=== PATIENT | male | born 1940 | race African-American/Black ===

== ENCOUNTER 2019-02-04 17:32 | Inpatient (IN) | payer MEDICARE, OTHER ==
[~2019-02-04] VITALS: Ht 180.3 cm; Wt 114.3 kg
--- NOTE | ~2019-02-04 | CON ---
[address] [address] CONSULTATION Name: GERBER MOSER Room: [address] ADM IN M.R.#: [id number] Admission: 02/04/19 Attend Phys: Jocelyn Rosas Discharge: Date of : 40 Report #: [id number] THIS REPORT FOR: //name// CC: DIA physician/PCP Mitchell Sweeney DATE OF SERVICE: 02/07/2019 ATTENDING PHYSICIAN: Dr. Gardner. REASON FOR EVALUATION: Nosocomial fevers. HISTORY OF PRESENT ILLNESS: Chart reviewed, patient examined. This is a 78-year-old gentleman with diabetes mellitus type 2, complicated by diabetic retinopathy and blindness, also suspected adouf-sn-mfjpvrg renal failure, presented to the Emergency Room with complaints of progressive weakness. It is notable he had a screening colonoscopy roughly 3 days prior to his admission, developed tremulousness and diaphoresis. notes he does twitching of his eyes generally in closed state as well as his lips sometimes, this is not new. Apparently, he has not had any nausea or emesis. Certainly, he has not had fevers preadmission, although his spouse does not believe that to be the case. He does live in [place]. Blood cultures have been collected on 2 different occasions on 02/04 and 02/05, both of which have been sterile; empirically started on antimicrobials with ceftriaxone and more recently levofloxacin. Imaging thus far involves chest x-ray on 3 occasions, showed no acute process. ALLERGIES: None known. CURRENT MEDICINES: Include levofloxacin, guaifenesin, insulin, isosorbide mononitrate, metoprolol, aspirin, ascorbic acid, levothyroxine, linagliptin, gabapentin, montelukast, atorvastatin, had received 48-72 hours of ceftriaxone as well. 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 SOCIAL HISTORY: Nonsmoker. No ethanol, no illicit drug use. FAMILY HISTORY: Noncontributory. REVIEW OF SYSTEMS: Otherwise, unremarkable 10-point review of systems except noted in the above history of present illness. PHYSICAL EXAMINATION: GENERAL: He is calm, alert; has his eyes closed, I guess, due to blindness; [place] [address] CONSULTATION Name: GERBER MOSER Room: [address] IN [facility].#: [id number] Admission: 02/04/19 Attend Phys: Jocelyn Rosas Discharge: Date of : 40 Report #: [id number] does respond appropriately; mild distress; appears to be generally well nourished. VITAL SIGNS: Temperature 101.3. Interestingly has a pulse of 73, although he is on a beta oralia, perhaps a question of temperature-pulse dissociation due to drug fever. HEENT: Normocephalic. NECK: Supple. LUNGS: Generally clear to auscultation. HEART: Regular, occasional ectopy, I do not appreciate a murmur. ABDOMEN: Soft, actually distended. There is no apparent tenderness. EXTREMITIES: Distal lower extremities have changes consistent with venous stasis, mild edema. GENITOURINARY: Deferred. RECTAL: Deferred. LABORATORY DATA: Most recent chest x-ray from 02/06 showed no acute process. Blood cultures on 02/04 and 02/05 are sterile thus far. Electrolytes most recently, sodium 140, potassium 3.9, chloride 103, bicarbonate is 27, anion gap of 10, BUN and creatinine 32 and 1.9, is down from 2.4. Estimated GFR of 42. Lactic acid initially 2.1, repeat was down to 1.6 and 1.5. CBC: White count of 5.6, H and H 10.3 and 30.7, platelets of 167. Liver functions were unremarkable. ASSESSMENT: Nosocomial fevers. Based on history and his responses, it is not entirely clear whether he has had fevers prior to his admission. Duration seems to revolve around his colonoscopy. Did switch off the beta-lactam antibiotic; we will see how he responds to that if indeed it was a drug fever. It is reasonable to check some imaging of the abdomen and pelvis, urinalysis to see if we can identify focus of pyogenic infection. At this point, he is not overtly toxic. We will monitor expectantly. By: [id number] Borja MD /nt
[2019-02-04 17:40] VITALS: BP 160/73
[2019-02-04] MEDS ORDERED: ASPIR 8181 MG PER TUBE (17:58)
[2019-02-04] MEDS ORDERED: NORVASC10 MG PO (17:58)
[2019-02-04] MEDS ORDERED: GABAPENTIN 100100 MG PO (17:59)
[2019-02-04] MEDS ORDERED: LANTUS100 UNIT/M SUBQ (17:59)
[2019-02-04] MEDS ORDERED: IMDUR 60 MG TAB60 M1 PO (17:59)
[2019-02-04] MEDS ORDERED: CENTRUM FLAVOR1 EAC1 PO (18:00)
[2019-02-04] MEDS ORDERED: SYNTHROID75 MCG PO (18:00)
[2019-02-04] MEDS ORDERED: NITROGLYCERIN0.4 MG SUBLING (18:00)
[2019-02-04] MEDS ORDERED: DIOVAN320 MG PO (18:01)
[2019-02-04] MEDS ORDERED: SINGULAIR4 MG PO (18:01)
[2019-02-04] MEDS ORDERED: LIPITOR40 MG PO (18:02)
[2019-02-04] MEDS ORDERED: TRADJENTA5 MG (18:02)
[2019-02-04] MEDS ORDERED: LOPRESSOR50 PO (18:02)
[2019-02-04] MEDS ORDERED: VITAMINC500 PO (18:02)
[2019-02-04] MEDS ORDERED: FISH OIL 1,001000 M2 PO (18:02)
[2019-02-04 18:07] LABS: ABSOLUTE EOSINOPHILS 0.1 thou/uL (0.0-0.7); ABSOLUTE MONOCYTES 1.2 thou/uL (0.0-1.2); BASOPHILS 0.6 %; EOSINOPHILS 1.1 %; HEMATOCRIT 32.1 % (42.0-52.0); HEMOGLOBIN 10.9 gm/dL (14.0-18.0); MCH 30.4 pg (26.0-34.0); MCHC 33.8 g/dL (28.0-37.0); MCV 89.9 fL (80.0-100.0); MONOCYTES 16.8 %; MPV 9.7 fl. (7.2-11.1); NUCLEATED RBCS 0 /100WBC; PLATELET COUNT* 183 thou/uL (150-400); POLYS 67.5 %; RBC 3.57 mil/uL (4.50-6.00); WBC 7.4 thou/uL (4.0-11.0)
[2019-02-04 18:25] LABS: APTT 35.1 Seconds (25.0-31.3); CALCIUM 8.7 mg/dL (8.5-10.1); CREATININE 2.4 mg/dL (0.6-1.3); POTASSIUM 4.1 mmol/L (3.5-5.1); PROTIME 10.7 Seconds (9.20-11.50)
[2019-02-04 18:36] LABS: ALBUMIN 3.2 g/dL (3.4-5.0); TOTAL BILIRUBIN 0.5 mg/dL (<0.1-1.0); TOTAL PROTEIN 7.6 g/dL (6.4-8.2); TROPONIN-I LEVEL 0.26 ng/mL (<0.06)
[2019-02-04 20:53] LABS: URINE BILIRUBIN NEGATIVE (Negative); URINE BLOOD NEGATIVE (Negative); URINE CLARITY CLEAR; URINE COLOR YELLOW; URINE GLUCOSE-RANDOM NEGATIVE (Negative); URINE KETONES NEGATIVE (Negative); URINE LEUKOCYTES-REFLEX NEGATIVE (Negative); URINE NITRITE-REFLEX NEGATIVE (Negative); URINE PROTEIN NEGATIVE (Negative); URINE SPECIFIC GRAVITY >= 1.030 (1.005-1.030); URINE UROBILINOGEN 0.2 E.U./dl (0.2-1.0)
[2019-02-04 21:09] VITALS: BP 135/64
[2019-02-05] VITALS: BP 146/54
--- NOTE | 2019-02-05 02:58 | NUR ---
RECIEVED REPORT AND ASSUMED CARE AT 2109. PT TRANSPORTED FROM ED TO ROOM 219. VSS. CARDIAC MONITORING IN PLACE. ASSESSMENT COMPLETED CHARTED. PT DENIES COMPLAINTS OF PAIN. ADMISSION COMPLETED BY NURSING. HOME MEDICATION REC COMPLETED. PT UP WITH ASSIST, ON RA. BED LOCKED IN LOWEST POSITION, CALL LIGHT WIHTIN REACH, BED ALARM ON. PT ORIENTATED TO ROOM, CALL LIGHT, FALL POLICY. PT IS BLIND BILATERAL EYES. COTTON BALLS ON NURSES CALL BUTTONS FOR PT TO BE ABLE TO ACCESS BY FEEL.
[2019-02-05 04:00] VITALS: BP 145/61
[2019-02-05 05:38] LABS: CALCIUM 8.3 mg/dL (8.5-10.1); POTASSIUM 3.6 mmol/L (3.5-5.1)
--- NOTE | 2019-02-05 07:09 | NUR ---
ASSUMED CARE APPROX 2330. AGREE WITH PREVIOUS NURSE CHARTING. VVS. SEE MAR. SEE CHARTING. FALL PRECAUTIONS IN PLACE. HOURLY ROUNING FOR SAFETY.
[2019-02-05 08:00] VITALS: BP 130/57
[2019-02-05 10:52] LABS: HEMATOCRIT 30.7 % (42.0-52.0); HEMOGLOBIN 10.3 gm/dL (14.0-18.0); MCH 30.2 pg (26.0-34.0); MCHC 33.5 g/dL (28.0-37.0); MCV 90.1 fL (80.0-100.0); MPV 10.4 fl. (7.2-11.1); NUCLEATED RBCS 0 /100WBC; PLATELET COUNT* 167 thou/uL (150-400); RBC 3.41 mil/uL (4.50-6.00); WBC 5.6 thou/uL (4.0-11.0)
[2019-02-05 11:25] LABS: % SATURATION 17 % (20-39); IRON 25 ug/dL (50-175)
[2019-02-05 11:30] VITALS: BP 157/77
[2019-02-05 11:39] LABS: ABSOLUTE LYMPHOCYTES 1.1 thou/uL (0.8-5.3); ABSOLUTE NEUTROPHILS 3.5 thou/uL (1.6-8.1); PLATELET ESTIMATE ADEQUATE
[2019-02-05 11:40] LABS: ANISOCYTOSIS 1+; POIKILOCYTOSIS 1+
--- NOTE | 2019-02-05 12:00 | EKG ---
[place] [address] ELECTROCARDIOGRAM REPORT Name: GERBER MOSER Room: [address] ADM IN M.R.#: [id number] Admission: 02/04/19 Attend Phys: Jocelyn Rosas Discharge: Date of : 40 Report #: [id number] THIS REPORT FOR: //name// [facility] ED Test Date: 2019-02-04 Test Time: 17:41:12 Pat Name: GERBER MOSER Department: Room: [facility] Gender: M Flue Lining Dipper: SG : 1940 Requested By: Mitch Caraballo Order Number: [id number] MD: Brian Ramirez Measurements Intervals [place] Rate: 72 P: -22 MA: 216 QRS: -49 QRSD: 137 T: 28 QT: 405 QTc: 444 Interpretive Statements Sinus rhythm Atrial premature complex Borderline prolonged MA interval RBBB and LAFB Borderline ST elevation, lateral leads No previous ECG available for comparison Electronically Signed On 02-05-2019 12:00:39 CDT by Brian Ramirez [email or web address] <ELECTRONICALLY SIGNED> By: Brian Ramirez MD, [facility] 02/05/19 1200 [id number] Brian Ramirez MD, [facility] /EPI
--- NOTE | 2019-02-05 13:40 | NUR ---
CM spoke with in room, Pt was asleep. Pt and here in [place] on vacation from [place], visiting family. Pt is A&O. Independent, assists as needed. Pt is blind. Pt uses a walking stick for mobility. Sleeps with a cpap at night. Hx of HH. No hx of SNF. Goal is home at ut, Pt/ plan to return to [place] on Sunday. Following.
--- NOTE | 2019-02-05 14:58 | NUR ---
ASSUMED CARE OF PATIENT THIS AM AT 0730. PATIENT IS ALERT AND ORIENTED X 4. HE DENIES PAIN. PATIENT'S BLOOD SUGARS HAVE BEEN LOW TODAY. PATIENT GIVEN JUICE TO MAINTAIN SUGARS UNTIL HE WAS RELEASED TO EAT. TELE SHOWS SR WITH 1DAVB/BBB AND PVCS. CARDIOLOGY IN TO SEE PATIENT THIS AFTERNOON AND PATIENT RELEASED TO EAT. I&OS MONITORED. PATIENT ASSISTED UP TO THE CHAIR. HIS IS IN AT THE BEDSIDE. WILL CONTINUE TO MONITOR. RENAL IN THIS AM. CALLED PATIENT'S DR FOR OLD RECORDS.
[2019-02-05 16:00] VITALS: BP 163/72
[2019-02-05 19:40] VITALS: BP 152/59
[2019-02-06] VITALS (7 sets, daily range): BP systolic 116–167; BP diastolic 56–73
[2019-02-06 05:22] LABS: CALCIUM 8.5 mg/dL (8.5-10.1); CREATININE 1.9 mg/dL (0.6-1.3); POTASSIUM 3.9 mmol/L (3.5-5.1)
--- NOTE | 2019-02-06 06:18 | NUR ---
PT HAD A TEMP, MEDICATION GIVEN TEMP WNL ON RECHECK. PT BLOOD SUGAR CHECKED AT 0400 DUE TO PT SWEATING, SUGAR WAS LOW. PT GIVEN X2 OJ AND X1 GLUTOSE 15, SUGAR ON RECHECK RAISED TO ACCEPTABLE RANGE. VVS. SEE MAR. SEE CHARTING. FALL PRECAUTIONS IN PLACE. HOURLY ROUNDING FOR SAFETY.
--- NOTE | 2019-02-06 08:36 | NUR ---
ASSUMED CARE OF PT THIS AM AROUND 0715- REEL ASSEMBLER IN PLACE ORDERED, TRACING SR WITH 1ST DEGREE/BBB- UPON ASSESSMENT PT NOTED TO BE RESTING IN BED, EYES CLOSED- PT A&O X3- CONTINENT OF B/B- ASSIST X1 WITH TRANSFERS- LCTA, RESP EVEN AND UN-LABORED- NON-PRODUCTIVE COUGH NOTED-O2 SAT 98% ON RA- TEMP NOTED TO BE 101.8, PRN TYLENOL GIVEN THIS AM- ABD SOFT/ROUND/NON-TENDER, BS X4 QUADS- LAST BM REPORTED 02/05/19- IV NOTED TO LEFT HAND INTACT, IV ABT GIVEN THIS AM PRESCRIBED- PT NOTED TO BE BLIND WITH ASSISTANCE REQUIRED WITH MEALS- STRICT I&O IN PLACE ORDERED- BS MONITORED ORDERED, BS THIS AM NOTED TO BE 92 WITH SCHEDULED LANTUS HELD- PT DENIES ANY C/O PAIN/DISCOMFORT AT THIS TIME- CALL LIGHT AND PERSONAL BELONGINGS WITH IN REACH- HOURLY ROUNDS IN PLACE R/T SAFETY/NEEDS- ALL NEEDS MET AT THIS TIME-WCTM
--- NOTE | 2019-02-06 16:06 | NUR ---
PT CURRENLTY SITTING UP ON SIDE OF BED, FAMILY AT SIDE VISITING- DUPLICATOR PUNCH OPERATOR IN PLACE ORDERED, TRACING SR, 1ST DEGREE/BBB- PT WORKING WITH THERAPIES PRESCIBED THIS SHIFT, TOELRATING WELL- GOOD PO INTAKE NOTED THIS SHIFT, BS MONITORED ORDERED- CALL LIGHT AND PERSONAL BELONGINGS WITH IN REACH- FREQUENT CHECKS IN PLACE R/T SAFETY/NEEDS- ALL NEEDS MET AT THIS TIME-WCTM
--- NOTE | 2019-02-06 18:15 | CON ---
[address] [address] CONSULTATION Name: GERBER MOSER Room: [address] ADM IN M.R.#: [id number] Admission: 02/04/19 Attend Phys: Jocelyn Rosas Discharge: Date of : 40 Report #: [id number] THIS REPORT FOR: //name// CC: DIA physician/PCP Mitchell Sweeney DATE OF SERVICE: 02/05/2019 CARDIOLOGY CONSULTATION HISTORY OF PRESENT ILLNESS: The patient is a 78-year-old black male who I was asked to see in the hospital today after he was noted to have an abnormal troponin. The patient is from [place]. The history is obtained from the patient's who is present. The patient is blind and is not very active at this time. He apparently had a heart catheterization in the past and was found to have no significant coronary artery disease. He was told to take an aspirin a day. He denies history of chest pain, shortness of breath, palpitations, syncope. He apparently had a colonoscopy last week in [place]. No significant abnormalities were found. Last weekend, he and his took a bus from [place] to [place] to stay with his daughter. After arriving here; however, he has not felt well. He has had no appetite, he has been coughing. Yesterday, he felt weak and diaphoretic. His brought him to the Emergency Room and he was admitted. He was noted to have an abnormal troponin. Cardiology consultation was requested. PAST MEDICAL HISTORY: Significant for appendectomy, cataract extraction, prostate cancer, leg fracture repaired in the past. 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 MEDICATIONS: Consist of amlodipine, aspirin, Neurontin, Imdur, insulin, ProAir, Singulair, valsartan HCT, Tradjenta, metoprolol, and atorvastatin. ALLERGIES: He has a previous intolerance to steroids. FAMILY HISTORY: Negative for heart disease. SOCIAL HISTORY: He is . He and his live in [place]. He is retired aguilar. No smoking or alcohol abuse. REVIEW OF SYSTEMS: He has had no history of stroke, asthma, peptic ulcer disease, liver disease. No previous kidney disease, no cancer. No psychiatric illness. No chronic skin condition. PHYSICAL EXAMINATION: GENERAL: Elderly male sitting in a chair. No acute distress. VITAL SIGNS: Blood pressure 140/60, pulse 70, [place] [address] CONSULTATION Name: GERBER MOSER Room: [address]#: [id number] Admission: 02/04/19 Attend Phys: Jocelyn Rosas Discharge: Date of : 40 Report #: [id number] HEENT: He is anicteric. Conjunctivae pink. Mucous membranes moist. NECK: Veins do not appear distended. No carotid bruits. Neck supple. CHEST: Clear to auscultation. CARDIOVASCULAR: Regular rate and rhythm, grade 2 systolic ejection murmur. ABDOMEN: Soft. EXTREMITIES: Had trace edema. SKIN: Cool and dry. NEUROLOGIC: Nonfocal. LABORATORY DATA: His ECG on admission showed a sinus rhythm, although there was actually no 12-lead on the patient's chart at this time to review. His workup in the Emergency Room, he had a portable chest x-ray last night that showed elevated left hemidiaphragm, otherwise clear lung garay, normal heart size. His ECG interpretation showed sinus rhythm with right bundle branch block, left anterior fascicular block. LABORATORY DATA: Sodium 140, BUN 40, creatinine 2.0, albumin 3.2. Troponin 0.26. BNP 1030. White blood cell count 5.6, hemoglobin 10.3, hematocrit 30.7. IMPRESSION AND RECOMMENDATIONS: 1. Borderline elevated troponin. No acute ECG changes. No history of angina. Suspect non-MO related elevation of troponin. Recommend no further cardiac evaluation. 2. Hypertension. The patient has been on a calcium oralia, ARB and diuretic. 3. Diabetes. 4. Hyperlipidemia. The patient is on a statin drug. 5. Acute renal failure. 6. History of prostate cancer. 7. Anemia. No history of bleeding. 8. Glaucoma with subsequent blindness. The patient is not very active at this time. <ELECTRONICALLY SIGNED> By: Brian Ramirez MD, [facility] 02/06/19 1815 [id number] Ramirez MD, FAC /nt
[2019-02-07] VITALS: BP 144/45
[2019-02-07 04:00] VITALS: BP 157/89
--- NOTE | 2019-02-07 05:43 | NUR ---
PT HX OF BLOOD SUGAR DROPING IN 40'S THROUGH NIGHT. LANTUS INSULIN GIVEN, SSI HELD. PT BLOOD SUGER HIGH THROUGH THE NIGHT DID NOT DROP THIS NIGHT. PT HAD SLIGHT TEMP GIVEN MEDICATION WITH RESULTS NOTED. SEE MAR. SEE CHARTING. FALL PRECAUTIONS IN PLACE. HOURLY ROUNDING FOR SAFETY.
--- NOTE | 2019-02-07 07:48 | NUR ---
PT recommending a FWW for Pt at [place]. CM asked Donna at [facility] to review records and determine if Pt will qualify per insurance. Awaiting decision.
[2019-02-07 08:30] VITALS: BP 148/73
[2019-02-07 12:44] VITALS: BP 156/78
[2019-02-07 17:33] VITALS: BP 119/53
--- NOTE | 2019-02-07 18:29 | NUR ---
TMAX 101.3. TYLENOL AND COOL COMPRESSES USED. TEMP DECREASED TO 98.6. PT SAT IN CHAIR AT LEAST 90 MINUTES THIS SHIFT. URINE SAMPLE SENT TO LAB.
[2019-02-07 18:34] LABS: URINE BILIRUBIN NEGATIVE (Negative); URINE BLOOD NEGATIVE (Negative); URINE CLARITY CLEAR; URINE COLOR YELLOW; URINE GLUCOSE-RANDOM NEGATIVE (Negative); URINE KETONES NEGATIVE (Negative); URINE LEUKOCYTES-REFLEX NEGATIVE (Negative); URINE NITRITE-REFLEX NEGATIVE (Negative); URINE PROTEIN TRACE (Negative); URINE SPECIFIC GRAVITY 1.015 (1.005-1.030); URINE UROBILINOGEN 0.2 E.U./dl (0.2-1.0)
[2019-02-07 20:00] VITALS: BP 158/74
[2019-02-08] VITALS: BP 167/71
[2019-02-08 04:00] VITALS: BP 176/80
[2019-02-08 04:48] VITALS: BP 195/75
--- NOTE | 2019-02-08 06:30 | NUR ---
NOTED "GLOTTAL" WHEEZING POST BREATHING TX THROUGH OUT SHIFT. PT REPORTED IT WAS NORMAL FOR HIM- SLIGHTLY WORSE WHILE IN [place]. REPORTED PT IS NOT ON HIS REGULAR INHALER MMEDICATION. NOTIFIED PHARMACY AND VERIFIED WHAT IS COMPATIBLE. BP ALSO HIGH THIS AM. NOTIFIED DR HAYWOOD PT'S HOME NORVASC NOT RESUSMED WELL MISSING STEROID INGREDIENT RECOMMEDED BY PHARMACY. BOTH MEDICATIONS RESUMED. PT AFEBRILE THROUGH NIGHT. CALL LIGHT IN REACH. HOURLY ROUNDING FOR SAFETY.
[2019-02-08 08:00] VITALS: BP 166/72
[2019-02-08 09:07] LABS: HEMATOCRIT 29.6 % (42.0-52.0); HEMOGLOBIN 10.1 gm/dL (14.0-18.0); MCH 30.5 pg (26.0-34.0); MCV 89.7 fL (80.0-100.0); MPV 9.7 fl. (7.2-11.1); RBC 3.3 mil/uL (4.50-6.00); RDW-CV 13.8 % (10.5-14.5); WBC 3.9 thou/uL (4.0-11.0)
[2019-02-08 09:28] LABS: CALCIUM 8.5 mg/dL (8.5-10.1); CREATININE 1.6 mg/dL (0.6-1.3); POTASSIUM 4.6 mmol/L (3.5-5.1)
[2019-02-08] MEDS ORDERED: LANTUS100 UNIT/M SUBQ (10:41)
[2019-02-08] MEDS ORDERED: MUCINEX600 MG PO (10:41)
[2019-02-08] MEDS ORDERED: LEVAQUIN 500 M500 M2 PO (10:41)
[2019-02-08 11:27] VITALS: BP 166/72
--- NOTE | 2019-02-08 11:30 | NUR ---
RECEIVED REPORT FROM ANETTE GUSTAFSON. ASSUMED CARE OF PT AROUND 0730. PT A&OX4, PT STATES HE IS COMPLETELY BLIND BILATERALLY. VSS. GEOGRAPHY FACULTY MEMBER IN PLACE TRACING SR 1ST DEGREE BBB. AM ASSESSMENT AND VITALS COMPLETED CHARTED. PT ABLE TO COME OFF O2 TO RA, O2 SATURATION >90% ON RA. PT ANXIOUS TO GO HOME, DISCHARGE ORDERS RECEIVED. DISCHARGE COMPLETED DOCUMENTED. DISCHARGE SUMMARY, CARE NOTES AND SCRIPTS GONE OVER WITH PT, PT COMMUNICATES UNDERSTANDING. IV AND GEOGRAPHY FACULTY MEMBER REMOVED. ALL BELONGINGS GATHERED AND LEAVING WITH PT. PT WAITING FOR FAMILY TO GET CAR, SITTING IN BEDSIDE CHAIR. FALL PRECAUTIONS IN PLACE. CALL LIGHT IS WITHIN REACH. WCTM TILL PT READY TO LEAVE UNIT.
--- NOTE | 2019-02-13 08:34 | CON ---
[address] [address] CONSULTATION Name: GERBER MOSER Room: [address] IN M.R.#: [id number] Admission: 02/04/19 Attend Phys: Jocelyn Rosas Discharge: 02/08/19 Date of : 40 Report #: [id number] THIS REPORT FOR: //name// CC: DIA physician/PCP Mitchell Sweeney DATE OF SERVICE: 02/05/2019 NEPHROLOGY CONSULTATION CONSULTING PHYSICIAN: Mitchell Sweeney DO REASON FOR NEPHROLOGY CONSULTATION: Acute kidney injury on possible chronic kidney disease. CHIEF COMPLAINT: Weakness. HISTORY OF PRESENT ILLNESS: This is a 78-year-old male with past medical history of diabetes. According to the patient, diabetic retinopathy and hypertension, who was brought in by his because he was having a lot of weakness since his colonoscopy 3 days ago. The patient said that he had some appetite loss as well, but now has been eating and drinking well. He does not take any NSAIDs. He was found to have a creatinine of 2.4 on admission, was started on IV fluids and his creatinine has come down to 2.0. The patient states that he has some kidney disease, follows with a kidney doctor back in [place] from where he is visiting currently and he is not sure what stage of kidney disease that he has. He traveled by a bus from [place] to visit his family. He does take valsartan at home. His blood pressure has been stable. He is currently resting. ALLERGIES: No known allergies. REVIEW OF SYSTEMS: As mentioned in history of present illness, otherwise 10-point review of systems are negative. PAST MEDICAL HISTORY: Includes diabetes; kidney disease, creatinine at baseline, not known; hypertension; dyslipidemia; thyroid disorder; legal blindness. CURRENT MEDICATIONS: Home medications which include amlodipine, aspirin, gabapentin, isosorbide mononitrate, insulin glargine, levothyroxine, multivitamin with minerals, nitroglycerin, montelukast, valsartan 320 mg a day, ascorbic acid, linagliptin, docosahexaenoic acid, metoprolol, atorvastatin. PAST SURGICAL HISTORY: [place] [address] CONSULTATION Name: GERBER MOSER Room: [address]#: [id number] Admission: 02/04/19 Attend Phys: Jocelyn Rosas Discharge: 02/08/19 Date of : 40 Report #: [id number] SOCIAL HISTORY: He does not smoke or drink alcohol or use illicit drugs. He lives at home with his family. FAMILY HISTORY: Reviewed, noncontributory to current situation. PHYSICAL EXAMINATION: VITAL SIGNS: Blood pressure is 145/61, respiratory rate is 18 and temperature 37.2, pulse rate is 64, and pulse ox 100% on room air. GENERAL: He is legally blind. His eyes are closed, but he is alert and oriented x 3. HEAD AND EYES: Atraumatic, normocephalic. Eyes, normal, currently closed. EARS, NOSE, AND THROAT: Mucous membranes are moist. NECK: There is no JVD. CHEST: Bilateral clear to auscultation anteriorly. No crackles or wheezing. CARDIOVASCULAR: S1, S2 normal. No murmurs or rubs. ABDOMEN: Soft, nondistended, nontender, bowel sounds are present. EXTREMITIES: No lower extremity edema, symmetrical lower extremities. NEUROLOGIC FUNCTION: Gross neurologic function seems to be intact. PSYCHIATRIC: Mood and affect seems to be normal. LABORATORY DATA: Hemoglobin is 10.9. Potassium is 3.6, creatinine is 2.0. Other labs are reviewed. Urine was reviewed, urine dipstick has no protein and blood in it. IMAGING: Chest x-ray was reviewed. ASSESSMENT: 1. Acute kidney injury on chronic kidney disease, most likely, baseline creatinine is not known and creatinine was 2.4 on admission, this is likely because of intravascular volume depletion in the setting of valsartan use. The patient was traveling in very high temperature conditions and recently had a colonoscopy as well. Urine dipstick has no protein or blood in it. The patient states that he does go to a kidney doctor in [place]. 2. Elevated troponin, could be because of renal insufficiency. We will defer to primary. 3. Mildly elevated CPK. 4. Diabetes type 2. We will defer to primary. 5. Hypertension, blood pressure is controlled. PLAN: 1. Continue IV fluids at 70 mL an hour of normal saline. 2. 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 3. Strict I's and O's. 4. Creatinine is already improving and if creatinine is back to his baseline [address] [address] CONSULTATION Name: GERBER MOSER Room: [address] IN M.R.#: [id number] Admission: 02/04/19 Attend Phys: Jocelyn Rosas Discharge: 02/08/19 Date of : 40 Report #: [id number] once we obtain his outpatient records, he should be able to go home from renal standpoint. 5. Keep valsartan on hold. Thank you for this consultation. We will continue to follow along with you. No need for renal ultrasound as long as creatinine is improving. I discussed with the patient and the patient's nurse and we will continue to follow along with you. <ELECTRONICALLY SIGNED> By: Adele Guardado MD 02/13/19 0834 [id number] Guardado MD /nt
== END 2019-02-08 12:00 | disposition home or self-care (01) | DRG 177 ==
LOC: M.ERS 17:32 → M.2W 18:59 → M.TBA-ER 18:59 → M.2W 21:12
PROVIDERS: Family Medicine; Internal Medicine; Specialist; ADMIT Internal Medicine
PROC: 0K9P3ZZ Drainage of Left Hip Muscle, Percutaneous Approach (ICD-10-PCS; principal; 2019-02-07)
DX: J69.0 Pneumonitis due to inhalation of food and vomit (principal); N17.0 Acute kidney failure with tubular necrosis; E78.00 Pure hypercholesterolemia, unspecified; H54.7 Unspecified visual loss; R79.89 Other specified abnormal findings of blood chemistry; H40.9 Unspecified glaucoma; E78.5 Hyperlipidemia, unspecified; E11.319 Type 2 diabetes mellitus with unspecified diabetic retinopathy without macular edema; N18.9 Chronic kidney disease, unspecified; E11.22 Type 2 diabetes mellitus with diabetic chronic kidney disease; I12.9 Hypertensive chronic kidney disease with stage 1 through stage 4 chronic kidney disease, or unspecified chronic kidney disease; E03.9 Hypothyroidism, unspecified; E11.649 Type 2 diabetes mellitus with hypoglycemia without coma; I25.10 Atherosclerotic heart disease of native coronary artery without angina pectoris; D50.9 Iron deficiency anemia, unspecified; J06.9 Acute upper respiratory infection, unspecified; J30.2 Other seasonal allergic rhinitis; Z79.899 Other long term (current) drug therapy; Z79.82 Long term (current) use of aspirin; Z79.4 Long term (current) use of insulin; Z90.49 Acquired absence of other specified parts of digestive tract; Z98.49 Cataract extraction status, unspecified eye; Z85.46 Personal history of malignant neoplasm of prostate; I25.2 Old myocardial infarction